=== PATIENT | male | born 1980 | race African-American/Black ===

== ENCOUNTER 2018-05-14 11:51 | Emergency (ER) | payer OTHER ==
[~2018-05-14] VITALS: Ht 157.5 cm; Wt 53.0 kg
[2018-05-14 14:27] LABS: BASOPHILS % 0.6 % (0.0-2.0); EOSINOPHILS % 4.8 % (0.0-5.0); HEMATOCRIT. 41.1 % (42.0-52.0); HEMOGLOBIN. 13.8 g/dL (14.0-18.0); LYMPHOCYTES % 28.9 % (20.0-50.0); MEAN CORPUSCULAR VOLUME 92.3 fL (80.0-94.0); MEAN PLATELET VOLUME 8.6 fl (7.4-10.4); MONOCYTES % 10.6 % (2.0-8.0); NEUTROPHILS % 55.1 % (40.0-76.0); PLATELET 190 x1000/uL (130-400); RED BLOOD CELL COUNT 4.46 mill/uL (4.7-6.1); RED CELL DISTRIBUTION WIDTH 13.3 % (11.6-14.6)
[2018-05-14 15:00] VITALS: BP 140/78
== END 2018-05-14 15:29 | disposition home or self-care (01) ==
LOC: ER 11:51
DX: K64.8 Other hemorrhoids (principal); R03.0 Elevated blood-pressure reading, without diagnosis of hypertension; F17.210 Nicotine dependence, cigarettes, uncomplicated
CPT/HCPCS: 36415; 99283